=== PATIENT | female | born 1980 | race Caucasian/White ===

== ENCOUNTER 2019-08-25 12:20 | Emergency (ER) | payer MEDICARE, MEDICAID ==
[~2019-08-25] VITALS: Ht 172.7 cm; Wt 129.6 kg
[2019-08-25 13:08] LABS: BASOPHILS # (AUTO) 0.1 X10'3 (0-0.2); BASOPHILS % (AUTO) 0.5 % (0-1); EOSINOPHILS # (AUTO) 0.3 X10'3 (0-0.9); EOSINOPHILS % (AUTO) 2.3 % (0-6); HEMOGLOBIN 10.6 g/dl (12.0-16.0); LYMPHOCYTES # (AUTO) 1.1 X10'3 (1.1-4.8); LYMPHOCYTES % (AUTO) 10.3 % (21-51); MEAN CORPUSCULAR HEMOGLOBIN 29.1 PG (27.0-31.0); MEAN CORPUSCULAR HGB CONC 33.2 g/dL (33.0-36.5); MEAN CORPUSCULAR VOLUME 87.6 FL (78-98); MEAN PLATELET VOLUME 7.7 FL (7.4-10.4); MONOCYTES # (AUTO) 0.4 X10'3 (0-0.9); NEUTROPHILS # (AUTO) 9.2 X10'3 (1.8-7.7); NEUTROPHILS % (AUTO) 82.9 % (42-75); PLATELET COUNT 291 X10'3 (140-440); RED BLOOD COUNT 3.65 X10'6 (4.20-5.60); RED CELL DISTRIBUTION WIDTH 16.8 % (11.5-14.5); WHITE BLOOD COUNT 11.2 X10'3 (4.5-11.0)
[2019-08-25] MEDS ORDERED: aspirin 325mg tablet PO ONE (13:10)
[2019-08-25 13:15] LABS: PARTIAL THROMBOPLASTIN TIME 24 SECONDS (22-32)
[2019-08-25 13:16] LABS: ALANINE AMINOTRANSFERASE 18 U/L (12-78); ALBUMIN 2.8 G/DL (3.4-5.0); ALBUMIN/GLOBULIN RATIO 0.6 (1.1-1.5); ALKALINE PHOSPHATASE 131 IU/L (46-116); ANION GAP 12 (8-16); ASPARTATE AMINO TRANSFERASE 13 U/L (10-37); BILIRUBIN,TOTAL 0.6 MG/DL (0.1-1.0); BLOOD UREA NITROGEN 15 MG/DL (7-18); BUN/CREATININE RATIO 11.1 (6.6-38.0); CALCIUM 8.8 MG/DL (8.5-10.1); CHLORIDE 104 MMOL/L (99-107); CREATININE 1.35 MG/DL (0.40-0.90); GLUCOSE 249 MG/DL (70-104); POTASSIUM 3.9 MMOL/L (3.5-5.1); SODIUM 139 MMOL/L (135-145); TOTAL CARBON DIOXIDE 23.4 MMOL/L (24-32); TOTAL PROTEIN 7.3 G/DL (6.4-8.2); eGFR 44 ML/MIN
[2019-08-25 13:22] LABS: HCG SERUM QL NEGATIVE
[2019-08-25 13:23] LABS: LACTIC SEPSIS 3.3 MMOL/L (0.4-2.0); MAGNESIUM 1.7 MG/DL (1.5-2.4)
[2019-08-25] MEDS ORDERED: BACL10TA PO (13:23)
[2019-08-25] MEDS ORDERED: ATOR80TA PO (13:23)
[2019-08-25 13:24] LABS: ACETAMINOPHEN < 2.0 UG/ML (10-30); ETHANOL < 0.010 GM/DL (0.0-0.010)
[2019-08-25] MEDS ORDERED: HYDR-4070 PO (13:24)
[2019-08-25] MEDS ORDERED: CARV-50 PO (13:24)
[2019-08-25] MEDS ORDERED: LISI-600 PO (13:24)
[2019-08-25] MEDS ORDERED: METO-292 PO (13:28)
[2019-08-25] MEDS ORDERED: OMEP40CA13 PO (13:28)
[2019-08-25] MEDS ORDERED: CefTRIAXone 2gm/D5W 50ml 50 ML IV ONE (13:30)
[2019-08-25] MEDS ORDERED: normal saline 1000ML IV soln IV ONE (13:30)
--- NOTE | 2019-08-25 13:50 | NUR ---
jUST FINISHED NEURO TELE EXAM WITH DR DEMARCO WHO ADVISES A NON STROKE WORK UP AT THIS TIME. PT HAS ELEVATED WBC AND L.A. OF 3.3. H/O STROKE IS PRESENT.
[2019-08-25 14:25] LABS: CLARITY,URINE SLIGHTLY CLOUDY (Clear); COLOR,URINE YELLOW (Yellow); GLUCOSE, URINE NEGATIVE (Neg); KETONES,URINE NEGATIVE (Neg); LEUKOCYTE ESTERASE ,URINE NEGATIVE (Neg); NITRITES, URINE NEGATIVE (Neg); OCCULT BLOOD,URINE MODERATE (Neg); PH,URINE 5.5 (4.8-8.0); PROTEIN,URINE 30 mg/dl (Neg); UROBILINOGEN,URINE 0.2 E.U/dL (0.2-1.0)
[2019-08-25 14:32] LABS: UA COLLECTION TYPE STRAIGHT CATH
[2019-08-25 14:36] LABS: URINE AMPHETAMINE SCREEN NEGATIVE (Neg); URINE BARBITUATE SCREEN NEGATIVE (Neg); URINE BENZODIAZEPINES SCREEN NEGATIVE (Neg); URINE CANNABINOID SCREEN NEGATIVE (Neg); URINE COCAINE SCREEN NEGATIVE (Neg); URINE METHADONE SCREEN NEGATIVE (Neg); URINE OPIATE SCREEN NEGATIVE (Neg); URINE PHENCYCLIDINE SCREEN NEGATIVE (Neg)
[2019-08-25 14:48] LABS: MUCUS STRANDS MANY /LPF (Neg); SQUAMOUS EPITHELIAL CELL,UR MANY /LPF (FEW)
[2019-08-25 14:57] LABS: AMORPHOUS URATES 1+; URIC ACID CRYSTALS 2+ /HPF (NEGATIVE)
[2019-08-25 14:58] LABS: BACTERIA,URINE 2+ /HPF (Neg)
--- NOTE | 2019-08-25 18:48 | NUR ---
INFORMED DR LAWLER THAT 6 HR TROP IS DUE AND IF HE WOULD LIKE THAT DONE. AWAITING RESPONSE PATIENT RATHER NOT SHE WANTS TO GO HOME
[2019-08-25 18:53] VITALS: BP 161/92
== END 2019-08-25 19:02 | disposition home or self-care (01) ==
LOC: ER 12:21
DX: R55 Syncope and collapse (principal); Z86.73 Personal history of transient ischemic attack (TIA), and cerebral infarction without residual deficits; Z56.0 Unemployment, unspecified; Z79.899 Other long term (current) drug therapy
CPT/HCPCS: 36415; 70450; 71045; 80053; 80305; 80320; 80329; 81001; 82140; 82948; 83605; 83735; 84145; 84484; 84703; 85025; 85610; 85730; 87040; 87088; 96365; 99284; J0696; J7030; J7040; P9612; 93005